=== PATIENT | female | born 2005 | race Two or more races ===

== ENCOUNTER 2023-02-07 06:59 | Emergency (ER) | payer OTHER ==
[2023-02-07 07:11] VITALS: BP 108/75; PULSE 80; RESP 20; TEMP 98.4; BMI 22.3
[2023-02-07] MEDS ORDERED: IBUPROFEN 600 MG TABLET (FP) PO ONE ×2 (09:23→09:59)
== END 2023-02-07 10:18 | disposition home or self-care (01) ==
LOC: JERFT 06:59
DX: H92.01 Otalgia, right ear (principal); R09.81 Nasal congestion; R05.9 Cough, unspecified; R50.9 Fever, unspecified; H66.001 Acute suppurative otitis media without spontaneous rupture of ear drum, right ear; J34.89 Other specified disorders of nose and nasal sinuses; Z20.822 Contact with and (suspected) exposure to COVID-19
CPT/HCPCS: 0241U-QW; 99283-25

== ENCOUNTER 2023-07-28 08:46 | Emergency (ER) | payer OTHER ==
[2023-07-28 09:14] VITALS: BMI 45.3
[2023-07-28] MEDS ORDERED: ACETAMINOPHEN 500 MG TABLET (FP) ONE (09:24)
[2023-07-28] MEDS: ACETAMINOPHEN 500 MG TABLET (FP) PO ONE (09:28)
[2023-07-28] MEDS ORDERED: CYCLOBENZAPRINE HCL 10 MG TABLET (FP) ONE (10:19)
[2023-07-28] MEDS ORDERED: predniSONE 20 MG TABLET (UD) ONE (10:20)
[2023-07-28 10:45] VITALS: BP 105/52; PULSE 109; RESP 18; TEMP 98.8
== END 2023-07-28 11:11 | disposition home or self-care (01) ==
LOC: JERFT 08:46 → JER 08:46 → JERFT 11:11
DX: R05.9 Cough, unspecified (principal); R50.9 Fever, unspecified; J06.9 Acute upper respiratory infection, unspecified; Z20.822 Contact with and (suspected) exposure to COVID-19
CPT/HCPCS: 0241U-QW; 99283-25

== ENCOUNTER 2023-07-31 20:30 | Emergency (ER) | payer OTHER ==
[2023-07-31 20:37] VITALS: BP 116/67; RESP 18; BMI 19.3
[2023-07-31] MEDS ORDERED: guaiFENesin/D-METHORPHAN HB 10 ML UNIT-DOSE CUPS ONE (23:09)
[2023-07-31] MEDS: guaiFENesin/D-METHORPHAN HB 10 ML UNIT-DOSE CUPS PO ONE (23:10)
[2023-08-01] MEDS ORDERED: AMOX TR/POT CLAV 875MG/125MG TABLETS (FP) ONE
[2023-08-01] MEDS: AMOX TR/POT CLAV 875MG/125MG TABLETS (FP) PO ONE (00:05)
[2023-08-01 00:07] VITALS: PULSE 97; TEMP 98.4
== END 2023-08-01 00:08 | disposition home or self-care (01) ==
LOC: JERFT 20:30
DX: R50.9 Fever, unspecified (principal); R09.89 Other specified symptoms and signs involving the circulatory and respiratory systems; J02.9 Acute pharyngitis, unspecified; J40 Bronchitis, not specified as acute or chronic; J18.9 Pneumonia, unspecified organism; Z20.822 Contact with and (suspected) exposure to COVID-19
CPT/HCPCS: 0241U-QW; 71046-TC-FY; 87651; 99284-25

== ENCOUNTER 2023-11-13 12:30 | Emergency (ER) | payer OTHER ==
[2023-11-13 12:59] VITALS: BP 118/62; PULSE 103; RESP 18; TEMP 98.5; BMI 18.6
[2023-11-13] MEDS ORDERED: IBUPROFEN 600 MG TABLET (FP) PO ONE (13:56)
[2023-11-13] MEDS ORDERED: DEXAMETHASONE SOD PHOSPHATE 10 MG/1 ML VIAL ONE (13:56)
[2023-11-13] MEDS: DEXAMETHASONE SOD PHOSPHATE 10 MG/1 ML VIAL PO ONE (13:58)
[2023-11-13] MEDS: IBUPROFEN 600 MG TABLET (FP) PO ONE (13:58)
== END 2023-11-13 14:57 | disposition home or self-care (01) ==
LOC: JERFT 12:30
DX: R05.9 Cough, unspecified (principal); J02.9 Acute pharyngitis, unspecified; J06.9 Acute upper respiratory infection, unspecified; B97.89 Other viral agents as the cause of diseases classified elsewhere; R09.81 Nasal congestion; R50.9 Fever, unspecified; M54.2 Cervicalgia
CPT/HCPCS: 71046-TC-FY; 87651; 99284-25; J1100